=== PATIENT | male | born 1955 | race Caucasian/White ===

== ENCOUNTER 2016-07-24 07:58 | Emergency (ER) | payer BC ==
[2016-07-24] MEDS ORDERED: ASPIRIN 81 MG TAB.CHEW ONE (08:22)
[2016-07-24] MEDS: ASPIRIN 81 MG TAB.CHEW PO ONE (08:23)
[2016-07-24 08:25] LABS: Hematocrit 40.8 % (42.0-52.0); Hemoglobin 13.8 gm/dL (13.5-18.0); Mean Cell Volume 93.4 fl (78-100); Mean Corpuscular Hemoglobin 31.6 pg (27-31); Mean Corpuscular Hgb Conc 33.8 g/dl (32-36); Neutrophil # 3.1 K/mm3 (1.3-6.0); Neutrophil % 53.9 % (42-75.0); Platelet Count 236 K/mm3 (150-450); Red Blood Count 4.37 M/mm3 (4.7-6.0); White Blood Count 5.8 K/mm3 (4.0-10.5)
[2016-07-24] MEDS: NORMAL SALINE 1,000 ML IV PRN (08:29)
[2016-07-24 08:34] LABS: Prothrombin Time (Patient) 10.6 Seconds (9.4-11.4)
[2016-07-24 08:36] LABS: INR 1.02 INR (0.90-1.10); Partial Thrombolplastin Time 24.3 Seconds (24-32)
--- NOTE | 2016-07-24 08:38 | ERNOTE ---
Chest Pain/Cardiac HPI Date of Service: 07/24/16 Time Seen by Provider: 07/24/16 08:04 Source: patient Immunizations: IMMUNIZATION HX Immunizations Up to Date Yes History of Influenza Vaccine No Hx Pneumococcal Vaccination No Allergies/Adverse Reactions: Allergies No Known Allergies Allergy (Verified 07/24/16 08:14) Home Medications: HOME MEDICATIONS Lisinopril [Zestril] 40 mg PO DAILY 08/14/15 [Last Taken Unknown] Aspirin 81 mg PO DAILY 07/24/16 [Last Taken Unknown] Atorvastatin Calcium 40 mg PO DAILY 07/24/16 [Last Taken Unknown] Clopidogrel Bisulfate [Plavix] 75 mg PO DAILY 07/24/16 [Last Taken Unknown] Isosorbide Mononitrate [Imdur] 30 mg PO DAILY 07/24/16 [Last Taken Unknown] Metoprolol Succinate 25 mg PO DAILY 07/24/16 [Last Taken Unknown] Nitroglycerin 0.4 mg SL PRN 07/24/16 [Last Taken Unknown] Narrative: CHEST PAIN STARTING ABOUT 0530 THIS AM. HE THINKS HE WAS ALREADY AWAKENING WHEN IT STARTED. WAS HIS "USUAL " PAIN STARTING IN HIS BACK CENTRALLY , GOING TO HIS CHEST , THEN TO HIS SHOULDERS AND ARMS. NO SOB OR SWEATING. HE STATES HE HAS HAD ANGINA [place]INCE [place] IN AUGUST 2015 TREATED AT [facility] IN [place] WITH STENT. IS ON ISORBIDE ER 30 QHS. HE COULDN'T REMEMBER IF HE TOOK IT LAST NIGHT. STATES HE GETS C.P. ABOUT 1/WEEK. HE HAS NOTED C.P. WITH EXERTION EACH OF PAST TWO DAYS WHICH IS UNUSUAL FOR HIM. BOTH TREATED WITH 1 NTG/SL. THIS AM HE TOOK NTG/SL X 4 , EACH GIVING IMPROVEMENT FOR ABOUT 30 MINS. THE LAST TIME ABOUT 0730 HE ALSO TOOK AN ISORBIDE DOSE AND CALLED EMS. HE SAYS HE WAS STARTING TO FEEL LIKE HE MIGHT PASS OUT. HE FEELS FINE NOW. HE HAS NEVER HAD AN EPISODE LIKE THIS BEFORE. HE DOES NOT RECALL ANY HX OF ABNORMAL EKG. HE LAST SAW RESPIRATORY PRACTITIONER SHORTLY AFTER HIS STENT. HE FOLOWS WITH DR SINGH HERE. Timing: gone now Location: central Chest Pain Radiation: arms, shoulders Activities at Onset: none Modifying Factors - Improves: Present: nitroglycerin Aspirin Treatment Today: no aspirin today Associated Symptoms: Present: dizziness Prior Chest Pain/Cardiac Workup: Reports: angina, heart attack, cardiac cath, other - STENT X 1 Review of Systems - Review of Systems Constitutional: Present: See HPI EYE: Present: no symptoms reported ENT: Present: no symptoms reported Respiratory: Present: no symptoms reported Cardiology: Present: See HPI, chest pain Gastrointestinal/Abdominal: Present: no symptoms reported Genitourinary: Present: no symptoms reported Musculoskeletal: Present: no symptoms reported Skin: Present: no symptoms reported Neurological: Present: See HPI, dizziness/light-headedness Endocrine: Present: no symptoms reported Hematologic/Lymphatic: Present: no symptoms reported Psych: Present: no symptoms reported All Other Systems: All systems neg except as marked - Patient's Past Medical History Patient History - Medical: No pertinent hx Patient History - Cardiac/Respiratory: Coronary Heart Disease, Hypertension, Hyperlipidemia Patient History - Cancer: No Hx of Cancer Patient History - Surgical Procedures: No surgical history, Cardiac stent Patient History - Other: None - Social History Living Situations: spouse Abuse History: No History of abuse Psych History: No pertinent hx Alcohol Use: none Drug Use: none - Immunizations Immunizations Up to Date: Yes Hx Pneumococcal Vaccination: No History of Influenza Vaccine: No Physical Exam - Physical Exam General Appearance: Present: wd/wn, alert, no apparent distress, other Respiratory: Present: no respiratory distress, normal breath sounds, no accessory muscle use, chest nontender, lungs clear Cardiovascular/Chest: Present: regular rate, rhythm, no murmur, normal peripheral pulses Peripheral Pulses: N=norm/S=strong/W=weak/B=bound/A=absent: Dorsalis-pedis (R): Normal, Dorsalis-pedis (L): Normal Gastrointestinal/Abdominal: Present: normal bowel sounds, nontender, nondistended, soft, no organomegaly Extremity Exam: Present: normal inspection, no edema Neurological Exam: Present: alert, oriented, normal mood/affect Skin Exam: Present: warm/dry, other - SMALL BRUISE TO LEFT ANKLE. , NO SWELLING. ED Progress - Date and Time Seen: Date and Time: 07/24/16 10:22 I TRIED TO CALL PCP, DR SINGH AT OFFICE AND CELL AT 0830, NO ANSWER, AGAIN AT 0900, STILL "NOT IN OFFICE", CALL OFFICE AT 0930 AND TOLD HE IS NOT IN TODAY , DR SUE IS COVERING. I CALLED DR TIPTON , HIS [facility] RESPIRATORY PRACTITIONER WHO THOUGHT HE NEEDED A STRESS TEST BUT STATES COULD BE DONE HERE IF PCP AND FAMILY AGREED. I D/W DR SUE AT 0930 AND SHE SAID SHE COULD ACCEPT BUT PATIENT STATES HE HAD TROUBLES WITH THE CHEMICAL STRESS AND WOULD RATHER BE AT [facility]. THEY AGREED TO ACCEPT HIM. - Results and Orders Patient's Lab Results:: I have reviewed the patient's lab results. Results and Orders: LABS ARE NORMAL. TROP = 0.019 - Vital Signs Patient's Vital Signs:: I have reviewed the patient's vital signs. - EKG EKG: NSR EKG read: Interp. by me - X-Ray X-Ray #1 X-Ray: chest Interpretation: Reviewed by me - NEG. CHEST - Progress/Reassessment Progress:: Improved - NO CHEST PAIN WHILE HERE. Plan - Plan Plan: AFTER DISCUSSION WITH DR SUE WHO IS COVERING FOR HIS PCP AND WITH DR TIPTON AND WITH PT AND HIS FAMILY. HE WOULD RATHER FOLLOW UP WITH HIS RESPIRATORY PRACTITIONER AT [facility] IN [place]. HIS RESPIRATORY PRACTITIONER AGREED TO ACCEPT HIM IN TRANSFER. I TALKED WITH RECEIVING NURSE PRACTIONER , TAMARA CALLAHAN, AT [facility] WHO AGREED TO ACCEPT PT. IN TRANSFER. Departure - Departure Clinical Impression: Accelerating angina Disposition: [facility] in [place] Condition: Stable Referrals: Santo Singh MD [Primary Care Provider] -
[2016-07-24 08:42] LABS: Albumin * 4.2 gm/dl (3.4-5.0); Anion Gap 7.5 mmol/L (6.8-13.8); Bilirubin, Total 0.4 mg/dL (0.0-1.1); Ca. Corrected For Albumin 8.7 mg/dL (8.4-10.2); Calcium * 9.2 mg/dL (7.9-10.9); Carbon Dioxide 29.9 mmol/L (24-32.6); Potassium 4.4 mmol/L (3.4-4.6); Total Protein 7.2 gm/dL (6.2-8.2); Troponin I 0.019 ng/ml (0.00-0.10)
[2016-07-24 09:41] VITALS: BP 139/75
== END 2016-07-24 11:02 | disposition short-term general hospital (02) ==
LOC: ER 07:58
DX: I25.110 Atherosclerotic heart disease of native coronary artery with unstable angina pectoris (principal); Z95.5 Presence of coronary angioplasty implant and graft; I10 Essential (primary) hypertension